=== PATIENT | female | born 2000 | race Caucasian/White ===

== ENCOUNTER 2019-07-27 08:26 | Outpatient (CLI) | payer BC ==
--- NOTE | 2019-07-27 09:09 | ULT ---
ULTRASOUND ABDOMEN COMPLETE: DATE: 07/27/2019 HISTORY: 18-year-old female with abdominal pain and nausea FINDINGS: Gallbladder: Normal wall thickness. No gallstones or sludge identified. No pericholecystic fluid. Liver: Normal parenchymal echogenicity. Bilateral kidneys: No hydronephrosis. Pancreas: Nonspecific sonographic appearance. Common duct caliber: 2 mm. Abdominal aorta: No aneurysm Inferior vena cava: Unremarkable where visualized. Spleen: No splenomegaly IMPRESSION: Normal.
== END 2019-07-27 08:27 | disposition home or self-care (01) ==
LOC: BICULT 08:26
PROVIDERS: ATTEND Internal Medicine Gastroenterology
DX: R10.9 Unspecified abdominal pain (principal); R11.0 Nausea; R68.81 Early satiety; K60.2 Anal fissure, unspecified; R09.89 Other specified symptoms and signs involving the circulatory and respiratory systems
CPT/HCPCS: 93975